=== PATIENT | male | born 2000 | race African-American/Black ===

== ENCOUNTER 2021-03-09 14:20 | Outpatient (CLI) | payer OTHER | END 2021-03-09 14:21 | disposition home or self-care (01) | LOC: SCSMRI 14:20 | PROVIDERS: ATTEND Orthopaedic Surgery | DX: S63.641D Sprain of metacarpophalangeal joint of right thumb, subsequent encounter (principal); S53.31XD Traumatic rupture of right ulnar collateral ligament, subsequent encounter; M79.644 Pain in right finger(s) ==

== ENCOUNTER 2021-03-29 07:19 | Outpatient (CLI) | payer OTHER ==
[2021-03-29 17:14] LABS: SARS-CoV-2 PCR by NAA Not Detected (NotDetected)
== END 2021-03-29 07:20 | disposition home or self-care (01) ==
LOC: LABBT 07:19
PROVIDERS: ATTEND Plastic Surgery Surgery of the Hand
DX: Z01.812 Encounter for preprocedural laboratory examination (principal); S63.641A Sprain of metacarpophalangeal joint of right thumb, initial encounter; Z20.822 Contact with and (suspected) exposure to COVID-19
CPT/HCPCS: U0003; U0005

== ENCOUNTER → 2021-03-30 | Day surgery (SDC) | payer OTHER ==
[2021-03-26 12:55] VITALS: BMI 30.2
[~2021-03-30] MED LIST: Fentanyl 100 MCG/2 ML VIAL ONE; HYDROmorphone 2 MG/ML VIAL ONE; Midazolam HCl 2 mg/2 ml Vial ONE; Phenylephrine 10 MG/ML VIAL ONE; Sodium Chloride 0.9% 10 ML ONE
== END ==
LOC: SDC 11:25
PROVIDERS: ATTEND Orthopaedic Surgery Hand Surgery
DX: S63.641A Sprain of metacarpophalangeal joint of right thumb, initial encounter (principal); Z53.8 Procedure and treatment not carried out for other reasons; X58.XXXA Exposure to other specified factors, initial encounter
CPT/HCPCS: J1170; J2250; J2370; J3010

== ENCOUNTER 2021-03-31 10:20 | Day surgery (SDC) | payer OTHER ==
[2021-03-31] MEDS ORDERED: Neomycin-Polymyxin 1 ML AMP ONE (11:33)
[2021-03-31] MEDS ORDERED: Thrombin 5000 UNITS/5 ML VIAL ONE (11:33)
[2021-03-31] MEDS ORDERED: Bupivacaine PF 0.5% 30 ML VIAL ONE (11:33)
[2021-03-31] MEDS ORDERED: Bacitracin Zinc Ointment 30 gm TUBE ONE (11:33)
[2021-03-31] MEDS ORDERED: Midazolam HCl 2 mg/2 ml Vial ONE (11:38)
[2021-03-31] MEDS ORDERED: Fentanyl 100 MCG/2 ML VIAL ONE (11:38)
[2021-03-31] MEDS ORDERED: ceFAZolin 2 GM/Dextrose 50 ML IVPB ONE (11:52)
[2021-03-31] MEDS ORDERED: Ondansetron PF 4 MG/2 ML Vial ONE (12:05)
[2021-03-31] MEDS ORDERED: Bupivacaine HCl 0.5%/Epinephrine 1:200,000/PF 30 ml Vial ONE (12:05)
[2021-03-31] MEDS ORDERED: ePHEDrine 50 MG/ML VIAL ONE (12:05)
[2021-03-31] MEDS ORDERED: PROPOFOL 200 MG/20 ML VIAL ONE (12:05)
[2021-03-31] MEDS ORDERED: Lidocaine 1% PF 5 ML VIAL ONE (12:05)
== END 2021-03-31 16:30 | disposition home or self-care (01) ==
LOC: SDC 10:20
PROVIDERS: ATTEND Orthopaedic Surgery Hand Surgery
PROC: 3E0T3BZ Introduction of Anesthetic Agent into Peripheral Nerves and Plexi, Percutaneous Approach (ICD-10-PCS; principal; 2021-03-31)
PROC: 0LS70ZZ Reposition Right Hand Tendon, Open Approach (ICD-10-PCS; principal; 2021-03-31)
DX: S63.418A Traumatic rupture of collateral ligament of other finger at metacarpophalangeal and interphalangeal joint, initial encounter (principal); X58.XXXA Exposure to other specified factors, initial encounter
CPT/HCPCS: 76000; C1713; C1894; J0690; J2250; J2405; J2704; J3010; J3490; S0020